=== PATIENT | male | born 1980 | race Caucasian/White ===

== ENCOUNTER 2017-10-08 20:02 | Emergency (ER) | payer OTHER ==
--- NOTE | 2017-10-08 20:43 | EDM.PDOC ---
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 Time Seen by Provider: 10/08/17 20:17 Source of Information: Reports: Patient History Limitations: Reports: No Limitations - History of Present Illness INITIAL COMMENTS - FREE TEXT/NARRATIVE: HISTORY AND PHYSICAL: History of present illness: 37-year-old male presenting to ED department with chief complaint of dysarthria , right arm numbness, and lightheadedness. Patient states that he believes that he became dehydrated today at work. States that he has not been working for some time and today before work had one energy drink. He then had another energy drink at his job. States that around 3:30 PM he felt physically exhausted and began to have some right hand cramping which then turned into right posterior surface forearm numbness. States that he told his boss and took a break. At that time he had some slurred speech. States that no one observed facial drooping or other neurologic deficits. The slurred speech lasted for approximately 45 seconds. He also felt like he was lightheaded and lost his equilibrium. He did not loose conciousness. They did call the ambulance where an ECG was taken as well as blood pressure which was initially elevated. Patient states that after work he had a meal as well as started pushing fluids but secondary to the above came to emergency department for further evaluation. Generally patient states that he is healthy and has no significant past medical history. He takes no daily medication and has no allergies. He denies any chest pain, palpitations, shortness of breath, syncopal episodes, or focal neurologic symptoms at this time. Initial ECG: NSR no significant ST changes rate 98 Review of systems: As per history of present illness and below otherwise all systems reviewed and negative. Past medical history: As per history of present illness and as reviewed below otherwise noncontributory. Surgical history: As per history of present illness and as reviewed below otherwise noncontributory. Social history: No reported history of drug or alcohol abuse. Family history: As per history of present illness and as reviewed below otherwise noncontributory. Physical exam: HEENT: Atraumatic, normocephalic, pupils reactive, negative for conjunctival pallor or scleral icterus, mucous membranes moist, throat clear, neck supple, nontender, trachea midline. Lungs: Clear to auscultation, breath sounds equal bilaterally, chest nontender. Heart: S1S2, regular, negative for clicks, rubs, or JVD. Abdomen: Soft, nondistended, nontender. Negative for masses or hepatosplenomegaly. Negative for costovertebral tenderness. Pelvis: Stable nontender. Genitourinary: Deferred. Rectal: Deferred. Extremities: Atraumatic, negative for cords or calf pain. Neurovascular unremarkable. Neuro: Awake, alert, oriented. Cranial nerves II through XII unremarkable. Cerebellum unremarkable. Motor and sensory unremarkable throughout. Exam nonfocal. Diagnostics: cbc, cmp, troponin, ECG, CT head, UA/UC, TSH Therapeutics: 1 L NS Impression: Mild dehydration Heat exhaustion Bronchitis Plan: CBC did show some mild leukocytosis. Patient did say he had a cough however chest x-ray was negative. He may be having beginning stages of bronchitis or pneumonia. I did give him a prescription for azithromycin/Z-Moe 1. CMP, troponin, hCG, CT head, UA/UC, TSH were all unremarkable. He is going to follow- up with his primary care provider and return to emergency department if he has any new or worsening symptoms. Definitive disposition and diagnosis as appropriate pending reevaluation and review of above. - Related Data Allergies Allergy/AdvReac Type Severity Reaction Status Date / Time No Known Allergies Allergy Verified 10/08/17 20:25 Home Meds: Home Meds . [No Known Home Meds] 10/08/17 [History] Past Medical History - Past Health History Medical/Surgical History: Denies Medical/Surgical History Social & Family History - Tobacco Use Smoking Status *Q: Never Smoker ED ROS GENERAL - Review of Systems Review Of Systems: ROS reveals no pertinent complaints other than HPI. ED EXAM, GENERAL - Physical Exam Exam: See Below Course - Vital Signs Last Recorded V/S: Last Vital Signs Temp 98.5 F 10/08/17 20:29 Pulse 108 H 10/08/17 20:29 Resp 18 10/08/17 20:29 BP 152/92 H 10/08/17 20:29 Pulse Ox 97 10/08/17 20:29 - Orders/Labs/Meds Orders: Active Orders 24 hr Category Date Time Status EKG Documentation Completion [RC] STAT Care 10/08/17 20:42 Active CXR [Chest 2V] [CR] Stat Exams 10/08/17 22:28 Taken Head wo Cont [CT] Stat Exams 10/08/17 20:41 Taken CULTURE URINE [RM] Stat Lab 10/08/17 22:00 Received UA W/MICROSCOPIC [URIN] Stat Lab 10/08/17 22:00 Ordered Labs: Laboratory Tests 10/08/17 10/08/17 10/08/17 Range/Units 20:45 20:45 22:00 WBC 14.98 H (4.0-11.0) K/uL RBC 5.25 (4.50-5.90) M/uL Hgb 14.6 (13.0-17.0) g/dL Hct 42.3 (38.0-50.0) % MCV 80.6 (80.0-98.0) fL MCH 27.8 (27.0-32.0) pg MCHC 34.5 (31.0-37.0) g/dL RDW Std Deviation 43.3 (28.0-62.0) fl RDW Coeff of Larry 15 (11.0-15.0) % Plt Count 290 (150-400) K/uL MPV 11.30 (7.40-12.00) fL Neut % (Auto) 75.0 (48.0-80.0) % Lymph % (Auto) 14.9 L (16.0-40.0) % [place] % (Auto) 9.4 (0.0-15.0) % Eos % (Auto) 0.5 (0.0-7.0) % Baso % (Auto) 0.2 (0.0-1.5) % Neut # (Auto) 11.2 H (1.4-5.7) K/uL Lymph # (Auto) 2.2 (0.6-2.4) K/uL [place] # (Auto) 1.4 H (0.0-0.8) K/uL Eos # (Auto) 0.1 (0.0-0.7) K/uL Baso # (Auto) 0.0 (0.0-0.1) K/uL Nucleated RBC % 0.0 /100WBC Nucleated RBCs # 0 K/uL Sodium 139 (136-148) mmol/L Potassium 3.7 (3.5-5.1) mmol/L Chloride 105 (98-107) mmol/L Carbon Dioxide 24.8 (21.0-32.0) mmol/L BUN 16 (7.0-18.0) mg/dL Creatinine 1.9 H (0.8-1.3) mg/dL Est Cr Clr Drug Dosing 61.33 mL/min Estimated GFR (MDRD) 40.5 ml/min Glucose 110 H (74-106) mg/dL Calcium 8.9 (8.5-10.1) mg/dL Total Bilirubin 0.4 (0.2-1.0) mg/dL AST 30 (15-37) IU/L ALT 41 (14-63) IU/L Alkaline Phosphatase 66 (46-116) U/L Troponin I 0.051 (0.000-0.056) ng/mL Total Protein 7.5 (6.4-8.2) g/dL Albumin 3.9 (3.4-5.0) g/dL Globulin 3.6 H (2.0-3.5) g/dL Albumin/Globulin Ratio 1.1 L (1.3-2.8) TSH 3rd Generation 2.42 (0.36-3.74) uIU/mL Urine Color YELLOW Urine Appearance CLEAR Urine pH 6.0 (5.0-8.0) Ur Specific [place] 1.020 (1.001-1.035) Urine Protein NEGATIVE (NEGATIVE) mg/dL Urine Glucose (UA) NEGATIVE (NEGATIVE) mg/dL Urine Ketones NEGATIVE (NEGATIVE) mg/dL Urine Occult Blood NEGATIVE (NEGATIVE) Urine Nitrite NEGATIVE (NEGATIVE) Urine Bilirubin NEGATIVE (NEGATIVE) Urine Urobilinogen 1.0 (<2.0) EU/dL Ur Leukocyte Esterase NEGATIVE (NEGATIVE) Urine RBC NONE SEEN (0-2/HPF) Urine WBC 0-1 (0-5/HPF) Ur Epithelial Cells NOT SEEN (NONE-FEW) Urine Bacteria RARE (NEGATIVE) Meds: Medications Discontinued Medications Generic Name Dose Route Start Last Admin Trade Name Freq PRN Reason Stop Dose Admin Sodium Chloride 1,000 mls @ 999 mls/hr 10/08/17 20:55 10/08/17 21:03 Normal Saline IV 10/08/17 21:55 999 mls/hr STAT ONE Administration Departure - Departure Time of Disposition: 23:31 Disposition: Home, Self-Care 01 Condition: Good Clinical Impression: Mild dehydration, Bronchitis Heat exhaustion Qualifiers: Encounter type: initial encounter Qualified Code(s): T67.5XXA - Heat exhaustion , unspecified, initial encounter - Discharge Information Referrals: PCP,None [Primary Care Provider] - Forms: ED Department Discharge Additional Instructions: My general discharge The following information is given to patients seen in the emergency department who are being discharged to home. This information is to outline your options for follow-up care. We provide all patients seen in our emergency department with a follow-up referral. The need for follow-up, as well as the timing and circumstances, are variable depending upon the specifics of your emergency department visit. If you don't have a primary care physician on staff, we will provide you with a referral. We always advise you to contact your personal physician following an emergency department visit to inform them of the circumstance of the visit and for follow-up with them and/or the need for any referrals to a consulting specialist. The emergency department will also refer you to a specialist when appropriate. This referral assures that you have the opportunity for follow-up care with a specialist. All of these measure are taken in an effort to provide you with optimal care, which includes your follow-up. Under all circumstances we always encourage you to contact your private physician who remains a resource for coordinating your care. When calling for follow-up care, please make the office aware that this follow-up is from your recent emergency room visit. If for any reason you are refused follow-up, please contact the [facility] Emergency Department at and asked to speak to the emergency department charge nurse. [facility] [address] [place] [id number] Please follow-up with primary care provider. Take medication as prescribed Return to emergency department if any new or worsening symptoms. - My Orders Last 24 Hours: My Active Orders 10/08/17 20:41 Head wo Cont [CT] Stat 10/08/17 20:42 EKG Documentation Completion [RC] STAT 10/08/17 22:00 CULTURE URINE [RM] Stat UA W/MICROSCOPIC [URIN] Stat 10/08/17 22:28 CXR [Chest 2V] [CR] Stat - Assessment/Plan Last 24 Hours: My Active Orders 10/08/17 20:41 Head wo Cont [CT] Stat 10/08/17 20:42 EKG Documentation Completion [RC] STAT 10/08/17 22:00 CULTURE URINE [RM] Stat UA W/MICROSCOPIC [URIN] Stat 10/08/17 22:28 CXR [Chest 2V] [CR] Stat
[2017-10-08] MEDS ORDERED: Sodium Chloride 0.9% 1,000 ML IV ONE (20:55)
--- NOTE | 2017-10-09 14:09 | CT ---
EXAM DATE: 10/08/17 PATIENT'S AGE: 37 Patient: BREA BLACKWELL Facility: [place], [place] Site . Site : 1980 Study: CT Head [id number]/[id number] 9:03:05 PM Ordering Physician: Dionisio Ewing Final Report: INDICATION: Numbness and change in speech that has resolved TECHNIQUE: CT Head without i.v. contrast. CONTRAST: None COMPARISON: None FINDINGS: CSF space: The ventricles are normal for age. Brain: No evidence of mass, acute infarction or hemorrhage is seen. No mass- effect or midline shift is seen. The brain parenchyma is otherwise normal in appearance with preservation of the munoz-white matter junction. Calvarium: The visualized paranasal sinuses are well aerated. The mastoid air cells are clear. The visualized orbits are grossly unremarkable. The calvarium is unremarkable in appearance with no fractures identified. IMPRESSION: 1. No evidence of acute infarction, intracranial hemorrhage, or mass-effect seen. Please note that all CT scans at this facility use dose modulation, iterative reconstruction, and/or weight-based dosing when appropriate to reduce radiation dose to as low as reasonably achievable. Dictated by: Nir Garcia MD @ 10/08/2017 21:36:41 (Electronic Signature) Report Signed by Proxy. [facility]
--- NOTE | 2017-10-09 14:19 | CR ---
EXAM DATE: 10/08/17 PATIENT'S AGE: 37 Patient: BREA BLACKWELL Facility: [place], [place] Site . Site : 1980 Study: XRay Chest [id number]/2/2018 11:09:20 PM Ordering Physician: Dionisio Ewing Final Report: INDICATION: Shortness of breath, slurring, right arm weakness been awake for 24 hours TECHNIQUE: Chest radiograph 2 views COMPARISON: None FINDINGS: Mediastinum: The mediastinum is normal in appearance. The heart silhouette is normal in size and morphology. Lung: Both lungs are unremarkable in appearance. No sign of pleural effusion seen. No pneumothorax is identified. Musculoskeletal: Unremarkable for age. IMPRESSION: 1. No acute cardiopulmonary disease is seen. Dictated by: Nir Garcia MD @ 10/08/2017 23:12:25 (Electronic Signature) Report Signed by Proxy. KEVIN
== END 2017-10-08 23:53 | disposition home or self-care (01) ==
LOC: MW.ED 20:02
DX: T67.5XXA Heat exhaustion, unspecified, initial encounter (principal); E86.0 Dehydration; J40 Bronchitis, not specified as acute or chronic; X30.XXXA Exposure to excessive natural heat, initial encounter
CPT/HCPCS: 36415; 70450; 71046; 80053; 81001; 84443; 84484; 85025; 87086; 93005; 96360; 99285; J7040

== ENCOUNTER 2018-05-03 10:11 | Emergency (ER) | payer BC ==
[2018-05-03] MEDS ORDERED: Ketorolac 60 MG/2 ML SDV IM ONE (10:22)
--- NOTE | 2018-05-03 10:50 | EDM.PDOC ---
ED HPI GENERAL MEDICAL PROBLEM - General Chief Complaint: General Stated Complaint: BODY ACHES/FEVER Time Seen by Provider: 05/03/18 10:12 Source of Information: Reports: Patient History Limitations: Reports: No Limitations - History of Present Illness INITIAL COMMENTS - FREE TEXT/NARRATIVE: HISTORY AND PHYSICAL: History of present illness: Patient is a 37-year-old male who presents to the emergency room with complaints of fever, chills, body aches, cough and sore throat 1 week. He states he has been using [id number] products without any relief. Has not had the flu shot this year. Patient denies any headache, change in vision, syncope or near syncope. Denies any chest pain, shortness of breath. Denies any abdominal pain, nausea, vomiting , diarrhea, constipation or dysuria. Has not noted any blood in urine or stool. Patient has been eating and drinking appropriately. Review of systems: As per history of present illness and below otherwise all systems reviewed and negative. Past medical history: As per history of present illness and as reviewed below otherwise noncontributory. Surgical history: As per history of present illness and as reviewed below otherwise noncontributory. Social history: See social history for further information Family history: As per history of present illness and as reviewed below otherwise noncontributory. Physical exam: General: Well-developed and well-nourished 37-year-old male. Alert and oriented. Nontoxic appearing and in no acute distress. HEENT: Atraumatic, normocephalic, pupils equal and reactive bilaterally, negative for conjunctival pallor or scleral icterus, mucous membranes moist, TMs normal bilaterally, throat clear, neck supple, nontender, trachea midline. No drooling or trismus noted. No meningeal signs. No hot potato voice noted. Lungs: Clear to auscultation, breath sounds equal bilaterally, chest nontender. Heart: S1S2, regular rate and rhythm without overt murmur Abdomen: Soft, nondistended, nontender. Negative for masses or hepatosplenomegaly. Negative for costovertebral tenderness. Pelvis: Stable nontender. Genitourinary: Deferred. Rectal: Deferred. Skin: Intact, warm, dry. No lesions or rashes noted. Extremities: Atraumatic, negative for cords or calf pain. Neurovascular unremarkable. Neuro: Awake, alert, oriented. Cranial nerves II through XII unremarkable. Cerebellum unremarkable. Motor and sensory unremarkable throughout. Exam nonfocal. Notes: Strep screening is negative. Influenza A is positive. Supportive care measures were reviewed and discussed. Voices understanding and is agreeable to plan of care. Denies any further questions or concerns at this time. Diagnostics: Influenza screening, strep Therapeutics: Toradol Prescription: Phenergan with Codeine Elixer Impression: Influenza A Plan: 1. Standard contact precautions (covering mouth while coughing, avoid sharing drinking cups and eating utensils). Please make sure you're doing good handwashing as this is contagious. 2. May use the Phenergan with Codeine as directed, do not take while driving or needing to be functioning outside the house. 3. Supportive care measures such as Tylenol and/or ibuprofen for pain and fever management.Encourage small frequent sips of fluids to prevent dehydration. 4. Follow-up with your equity holder in the next 1-2 days. Return to the ED as needed and as discussed. Definitive disposition and diagnosis as appropriate pending reevaluation and review of above. Generalized Pain Score (Numeric/FACES): 6 - Related Data Allergies Allergy/AdvReac Type Severity Reaction Status Date / Time No Known Allergies Allergy Verified 10/08/17 20:25 Home Meds: Home Meds . [No Known Home Meds] 10/08/17 [History] Past Medical History - Past Health History Medical/Surgical History: Denies Medical/Surgical History ED ROS GENERAL - Review of Systems Review Of Systems: ROS reveals no pertinent complaints other than HPI. ED EXAM, GENERAL - Physical Exam Exam: See Below (See dictation) Course - Vital Signs Last Recorded V/S: Last Vital Signs Temp 97.4 F 05/03/18 10:25 Pulse 104 H 05/03/18 10:25 Resp 18 05/03/18 10:25 BP 140/71 05/03/18 10:25 Pulse Ox 97 05/03/18 10:25 - Orders/Labs/Meds Orders: Active Orders 24 hr Category Date Time Status CULTURE STREP A CONFIRMATION [RM] Stat Lab 05/03/18 10:23 Results STREP SCRN A RAPID W CULT CONF [RM] Stat Lab 05/03/18 10:23 Results Meds: Medications Discontinued Medications Generic Name Dose Route Start Last Admin Trade Name Freq PRN Reason Stop Dose Admin Ketorolac Tromethamine 60 mg 05/03/18 10:22 05/03/18 10:34 Toradol IM 05/03/18 10:23 60 mg ONETIME ONE Administration Departure - Departure Time of Disposition: 11:09 Disposition: Home, Self-Care 01 Clinical Impression: Influenza A - Discharge Information Instructions: Influenza, Adult, [id number] Referrals: PCP,None [Primary Care Provider] - Forms: ED Department Discharge Additional Instructions: The following information is given to patients seen in the emergency department who are being discharged to home. This information is to outline your options for follow-up care. We provide all patients seen in our emergency department with a follow-up referral. The need for follow-up, as well as the timing and circumstances, are variable depending upon the specifics of your emergency department visit. If you don't have a primary care physician on staff, we will provide you with a referral. We always advise you to contact your personal physician following an emergency department visit to inform them of the circumstance of the visit and for follow-up with them and/or the need for any referrals to a consulting specialist. The emergency department will also refer you to a specialist when appropriate. This referral assures that you have the opportunity for follow-up care with a specialist. All of these measure are taken in an effort to provide you with optimal care, which includes your follow-up. Under all circumstances we always encourage you to contact your private physician who remains a resource for coordinating your care. When calling for follow-up care, please make the office aware that this follow-up is from your recent emergency room visit. If for any reason you are refused follow-up, please contact the [facility] Emergency Department at and asked to speak to the emergency department charge nurse. [facility] [address] [place] [address] [phone] [address] [address] 1. Standard contact precautions (covering mouth while coughing, avoid sharing drinking cups and eating utensils). Please make sure you're doing good handwashing as this is contagious. 2. May use the Phenergan with Codeine as directed, do not take while driving or needing to be functioning outside the house. 3. Supportive care measures such as Tylenol and/or ibuprofen for pain and fever management.Encourage small frequent sips of fluids to prevent dehydration. 4. Follow-up with your equity holder in the next 1-2 days. Return to the ED as needed and as discussed. - My Orders Last 24 Hours: My Active Orders 05/03/18 10:23 CULTURE STREP A CONFIRMATION [RM] Stat STREP SCRN A RAPID W CULT CONF [RM] Stat - Assessment/Plan Last 24 Hours: My Active Orders 05/03/18 10:23 CULTURE STREP A CONFIRMATION [RM] Stat STREP SCRN A RAPID W CULT CONF [RM] Stat
== END 2018-05-03 11:22 | disposition home or self-care (01) ==
LOC: MW.ED 10:11
DX: J10.1 Influenza due to other identified influenza virus with other respiratory manifestations (principal)
CPT/HCPCS: 87081; 87804; 87880; 96372; 99283; J1885